=== PATIENT | female | born 2000 | race Caucasian/White ===

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

== ENCOUNTER 2021-12-25 15:02 | Emergency (ER) | payer OTHER ==
[2021-12-25 15:58] VITALS: BP 159/70; PULSE 87; RESP 18; TEMP 97.6
--- NOTE | 2021-12-25 18:17 | ED ---
Psych HPI - General Chief Complaint: Psychiatric Symptoms Stated Complaint: Mental Health Time Seen by Provider: 12/25/21 17:26 Source: patient Mode of arrival: ambulatory - History of Present Illness Initial Comments: Patient is a 21-year-old female presenting with chief complaint of suicidal ideation. Patient states that for the last 2 weeks she has had increasing thoughts of self-harm that have been excessively graphic. Patient states that she has had intermittent thoughts of self-harm over the last few years, but over the last 2 weeks the thoughts have gotten worse. She was seen at her PCPs office today to discuss medication changes, when asked about suicidal ideation patient admitted to this issue and her PCP suggested she see further evaluation in the ER. Patient states that she recently moved and started a new job, however these events have not put excessive stress on her and she is unsure why she is having this acute change. She is currently on Celexa. She denies any chest pain, shortness of breath, fever, chills, nausea, vomiting, cough, abdominal pain, diarrhea, hematochezia, melena, dysuria, hematuria, urgency, frequency, extremity pain or paresthesia. - Related Data Home Medications Medication Instructions Recorded Confirmed Citalopram Hydrobromide [CeleXA] 40 mg PO HS 11/29/20 11/29/20 Ibuprofen [Motrin Ib] 800 mg PO Q8H PRN 11/29/20 11/29/20 diphenhydrAMINE [Benadryl] 25 mg PO TID PRN 11/29/20 11/29/20 norgestimate-ethinyl estradioL 1 tab PO DAILY 11/29/20 11/29/20 [Tri-Sprintec Tablet] Allergies Allergy/AdvReac Type Severity Reaction Status Date / Time No Known Allergies Allergy Verified 12/25/21 15:59 Review of Systems ROS Statement: Those systems with pertinent positive or pertinent negative responses have been documented in the HPI. ROS Other: All systems not noted in ROS Statement are negative. Past Medical History Past Medical History: CVA/TIA, Diabetes Mellitus Additional Past Medical History / Comment(s): history of a seizure in the past related to stroke. has been weaned off of medications. Factor 5 History of Any Multi-Drug Resistant Organisms: None Reported Past Surgical History: Adenoidectomy, Tonsillectomy Past Psychological History: ADD/ADHD, Anxiety Smoking Status: Never smoker Past Alcohol Use History: None Reported Past Drug Use History: Marijuana General Exam Limitations: no limitations General appearance: alert, in no apparent distress Head exam: Present: atraumatic, normocephalic, normal inspection Eye exam: Present: normal appearance, EOMI. Absent: scleral icterus Neck exam: Present: normal inspection Respiratory exam: Present: normal lung sounds bilaterally. Absent: respiratory distress, wheezes, rales, rhonchi, stridor Cardiovascular Exam: Present: regular rate, normal rhythm, normal heart sounds. Absent: systolic murmur, diastolic murmur, rubs, gallop, clicks GI/Abdominal exam: Present: soft. Absent: distended, tenderness, guarding, rebound, rigid Extremities exam: Present: normal inspection, full ROM Back exam: Present: normal inspection Neurological exam: Present: alert, oriented X3, CN II-XII intact Psychiatric exam: Present: normal affect, normal mood Skin exam: Present: warm, dry, intact, normal color. Absent: rash Course Vital Signs 12/25/21 15:55 Temperature 97.6 F Pulse Rate 87 Respiratory 18 Rate Blood Pressure 159/70 O2 Sat by Pulse 98 Oximetry Medical Decision Making - Medical Decision Making Patient is a 21-year-old female presenting with chief complaint of suicidal ideation. Patient has had suicidal ideation on and off for years. She states that recently thoughts have been getting more intense and graphic. She was sent here by her PCP. She has no physical complaints. Physical examination is unremarkable. Patient was evaluated by EPS, she was given follow-up with the mobile crisis unit tomorrow, resources, and a safety plan. They believe she is stable for discharge with outpatient follow-up at this time. Patient feels comfortable with this plan. Report back to ER if any new or worsening symptoms. Discussed return parameters answered all questions. Patient conveyed verbal understanding and agreed to the plan. My attending is Dr. Patrick. Disposition Clinical Impression: Acute anxiety, Depression Disposition: HOME SELF-CARE Condition: Good Instructions (If sedation given, give patient instructions): Depression (ED), Generalized Anxiety Disorder (ED) Additional Instructions: Follow-up with mobile crisis unit tomorrow and PCP in one to 2 days. Utilize resources provided by EPS. Report back to ER with any new or worsening symptoms. Is patient prescribed a controlled substance at d/c from ED?: No Referrals: Danyelle,Brooks, MD [Primary Care Provider] - 1-2 days Time of Disposition: 21:15
== END 2021-12-25 22:34 | disposition home or self-care (01) ==
LOC: EC 15:02
DX: F32.A Depression, unspecified (principal); F41.9 Anxiety disorder, unspecified; R45.851 Suicidal ideations; E11.9 Type 2 diabetes mellitus without complications; Z86.73 Personal history of transient ischemic attack (TIA), and cerebral infarction without residual deficits
CPT/HCPCS: 82075

== ENCOUNTER 2022-05-05 10:12 | Inpatient (IN) | payer MEDICAID, OTHER ==
[2022-05-05] MEDS ORDERED: HALOPERIDOL LACTATE 5 MG/ML 1 ML VIAL IM PRN (14:37)
[2022-05-05] MEDS ORDERED: MAGNESIUM HYDROXIDE 2,400 MG/10 ML CUP PO PRN (14:37)
[2022-05-05] MEDS ORDERED: MAG HYDROX/AL HYDROX/SIMETH 30 ML CUP PO PRN (14:37)
[2022-05-05] MEDS ORDERED: LORazepam 1 MG TAB PO PRN (14:37)
[2022-05-05] MEDS ORDERED: IBUPROFEN 800 MG TAB PO PRN (14:40)
[2022-05-05] MEDS ORDERED: LORazepam 1 MG/0.5 ML VIAL IM PRN (14:41)
[2022-05-05] MEDS ORDERED: haloperidoL 5 MG TAB PO PRN (14:41)
[2022-05-05 17:10] LABS: ALT 22 U/L (4-34); AST 20 U/L (14-36); African American GFR (CKD) >90 (>60 ml/min/1.73 sqM); Albumin 3.9 g/dL (3.5-5.0); Alcohol <10 mg/dL; Alkaline Phosphatase 53 U/L (38-126); Anion Gap 11 mmol/L; Blood Urea Nitrogen 16 mg/dL (7-17); Calcium 8.9 mg/dL (8.4-10.2); Carbon Dioxide 21 mmol/L (22-30); Chloride 105 mmol/L (98-107); Creatine Kinase 55 U/L (30-135); Creatine Kinase MB 0.5 ng/mL (0.0-2.4); Glucose 112 mg/dL (74-99); Non-African American GFR(CKD) >90 (>60 ml/min/1.73 sqM); Phosphorus 4.3 mg/dL (2.5-4.5); Potassium 3.7 mmol/L (3.5-5.1); Salicylate <1.0 mg/dL; Sodium 137 mmol/L (137-145); Total Bilirubin 0.2 mg/dL (0.2-1.3); Total Protein 6.3 g/dL (6.3-8.2); Troponin I <0.012 ng/mL (0.000-0.034)
[2022-05-05 17:15] LABS: Basophils # (A) 0.1 k/uL (0-0.2); Basophils % (A) 1 %; Eosinophils # (A) 0.1 k/uL (0-0.7); Eosinophils % (A) 1 %; HCT 37.1 % (34.0-46.0); HGB 12.9 gm/dL (11.4-16.0); Lymphocytes % (A) 26 %; MCHC 34.8 g/dL (31.0-37.0); MCV 86.1 fL (80.0-100.0); Mean Platelet Volume 7.1; Monocytes # (A) 0.7 k/uL (0-1.0); Monocytes % (A) 6 %; Neutrophils # (A) 7.5 k/uL (1.3-7.7); Neutrophils % (A) 65 %; Platelet Count 308 k/uL (150-450); RBC 4.31 m/uL (3.80-5.40); RDW 13.1 % (11.5-15.5); WBC 11.6 k/uL (4.0-11.0)
[2022-05-05 17:26] LABS: Magnesium 2.1 mg/dL (1.6-2.3)
[2022-05-05 18:33] LABS: Amphetamine Screen,Urine Not Detected (NotDetected); Barbiturate Screen,Urine Not Detected (NotDetected); Benzodiazepines Screen,Urine Detected (NotDetected); Cocaine Screen,Urine Not Detected (NotDetected); Methadone Screen, Urine Not Detected (NotDetected); Opiate Screen,Urine Not Detected (NotDetected); Oxycodone Screen, Urine Not Detected (NotDetected); Phencyclidine Screen,Urine Not Detected (NotDetected); Tricyclic Antidepressant,Urine Not Detected (NotDetected); Urn Cannabinoid Scrn Detected (NotDetected)
[2022-05-05] MEDS: CITALOPRAM HYDROBROMIDE 20 MG TAB PO SCH (20:44)
[2022-05-06] MEDS ORDERED: NORGESTIMATE ETHINYL ESTRADIOL PO SCH (09:00)
[2022-05-06] MEDS: NICOTINE 14MG/24HR PATCH TRANSDERM SCH (11:06)
--- NOTE | 2022-05-06 15:50 | P.MDCNMH ---
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 Patient otherwise denied any complaints of chest pain or shortness of breath. No headache or dizziness or tiredness. No fever no chills. No nausea vomiting abdominal pain and diarrhea. Patient does use marijuana at home. Denied any nicotine use. Denied any recent illnesses. Laboratory data showed WBC 11.6 hemoglobin 12.9 and platelets 308, sodium 137 po tassium 3.7 chloride 105 bicarb is 21 BUN 16 and creatinine 0.6 and blood sugar is 112, troponin 1 negative UDS is positive for benzodiazepines and marijuana. Serum acetaminophen level 65 on admission and came down to 48.3. Review of Systems Constitutional: Patient denies any fever or chills . No generalized weakness or weight loss. Abdomen: Patient denied nausea vomiting and diarrhea and abdominal pain. Cardiovascular: Patient denies any chest pain or short of breath no palpitations. Respiratory: patient denied any cough is from production. No shortness of breath Neurologic: Patient denied any numbness or tingling headache. Musculoskeletal: Patient denies any complaints of joint swelling or deformity. Skin: Negative Psychiatric: Negative Endocrine: No heat or cold intolerance. No recent weight gain. Genitourinary: No dysuria or hematuria. All other 14 point ROS negative except the above Past Medical History Past Medical History: CVA/TIA, Diabetes Mellitus Additional Past Medical History / Comment(s): history of a seizure in the past related to stroke. has been weaned off of medications. Factor 5 History of Any Multi-Drug Resistant Organisms: None Reported Past Surgical History: Adenoidectomy, Tonsillectomy Past Psychological History: ADD/ADHD, Anxiety Smoking Status: Never smoker Past Alcohol Use History: None Reported Past Drug Use History: Marijuana Medications and Allergies Home Medications Medication Instructions Recorded Confirmed Type Citalopram Hydrobromide [CeleXA] 40 mg PO DAILY 11/29/20 05/05/22 History Allergies Allergy/AdvReac Type Severity Reaction Status Date / Time No Known Allergies Allergy Verified 05/05/22 13:02 Physical Exam Vitals: Vital Signs Temp Pulse Pulse Resp BP BP Pulse Ox 05/05/22 15:15 98.3 F 67 15 119/80 05/05/22 14:50 97.8 F 87 20 132/68 98 Intake and Output 05/05/22 05/06/22 05/06/22 23:59 06:59 14:59 Other: Weight 110.8 kg PHYSICAL EXAMINATION: Patient is lying in the bed comfortably, no acute distress, awake alert and oriented.. HEENT: Normocephalic. Neck is supple. Pupils reactive. Nostrils clear. Oral cavity is moist. Neck reveals no JVD, carotid bruits, or thyromegaly. CHEST EXAMINATION: Trachea is central. Symmetrical expansion. Lung finney clear to auscultation and percussion. CARDIAC: Normal S1, S2 with no gallops. No murmurs ABDOMEN: Soft. Bowel sounds normal. No organomegaly. No abdominal bruits. Extremities: reveal no edema. No clubbing or cyanosis Neurologically awake, alert, oriented x3 with well-coordinated movements. No focal deficits noted Skin: No rash or skin lesions. Psychiatric: Coperative. Nonsuicidal Musculoskeletal: No joint swelling or deformity. Normal range of motion. Cranial Nerve Examination - Cranial Nerves Cranial Nerve I- Olfactory: Intact Cranial Nerve II- Optic: Intact Cranial Nerve III- Oculomotor: Intact Cranial Nerve IV- Trochlear: Intact Cranial Nerve V- Trigeminal: Intact Cranial Nerve - Abducens: Intact Cranial Nerve VII- Facial: Intact Cranial Nerve VIII- Auditory: Intact Cranial Nerve IX- Glossopharyngeal: Intact Cranial Nerve X- Vagus: Intact Cranial Nerve XI- Accessory: Intact Cranial Nerve XII- Hypoglossal: Intact Results CBC & Chem 7: 05/05/22 04:11 05/05/22 04:11 Labs: Abnormal Lab Results - Last 24 Hours (Table) 05/05/22 05/05/22 05/05/22 Range/Units 04:11 04:11 08:00 WBC 11.6 H (4.0-11.0) k/uL Carbon Dioxide 21 L (22-30) mmol/L Glucose 112 H (74-99) mg/dL Acetaminophen 65.0 H* ug/mL U Benzodiazepines Scrn Detected H (NotDetected) U Marijuana (THC) Screen Detected H (NotDetected) Assessment and Plan Assessment: Suicide attempt with medication overdose. Major Depression History of CVA/TIA History of seizures due to CVA. Not on any AEDs Morbid obesity BMI 40.6 Diet controlled diabetes next and UDS positive for marijuana) DVT prophylaxis the examination Plan: Patient will be continued on current psychiatric plan and management. Acetaminophen level 65 on admission and is turning down to 48. UDS is positive for marijuana and benzodiazepines. Continue with Accu-Cheks and follow closely. Further recommendations based on the clinical course. thank you for your consult. Time with Patient: Greater than 30
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
[2022-05-06 17:33] LABS: LDL Cholesterol,Calculated 50.1 mg/dL (0.0-131.0)
[2022-05-06] MEDS: ARIPiprazole 2 MG TAB PO SCH (18:24)
[2022-05-06] MEDS: CITALOPRAM HYDROBROMIDE 20 MG TAB PO SCH (20:49)
[2022-05-07 06:40] VITALS: RESP 14
[2022-05-07] MEDS: NICOTINE 14MG/24HR PATCH TRANSDERM SCH (08:43)
[2022-05-07] MEDS: ARIPiprazole 2 MG TAB PO SCH (08:45)
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
[2022-05-07] MEDS: CITALOPRAM HYDROBROMIDE 20 MG TAB PO SCH (20:55)
[2022-05-08 07:11] VITALS: BP 125/51; PULSE 70; TEMP 97.7
[2022-05-08] MEDS: NICOTINE 14MG/24HR PATCH TRANSDERM SCH (08:29)
[2022-05-08] MEDS: ARIPiprazole 2 MG TAB PO SCH (08:30)
--- NOTE | 2022-05-08 12:46 | P.DS ---
Providers Date of admission: 05/05/22 14:30 Attending physician: Bradford Gomez MD Consults: 05/05/22 18:02 Consult Physician [facility]ine [facility] Reason/Comments: medical management Do you want consulting provider notified?: Yes Primary care physician: Brooks Bassett - Discharge Diagnosis(es) (1) Depressive disorder Current Visit: Yes Status: Acute Priority: High (2) Personality disorder, unspecified Current Visit: Yes Status: Acute Priority: Medium Plan - Discharge Summary New Discharge Prescriptions: New Mag Hydrox/Al Hydrox/Simeth [Maalox] 30 ml PO Q4HR PRN ml PRN Reason: Gi Upset ARIPiprazole [Abilify] 2 mg PO DAILY 30 Days #30 tab Citalopram Hydrobromide [CeleXA] 40 mg PO HS 30 Days #30 tab Ibuprofen [Motrin] 800 mg PO Q8H PRN tab PRN Reason: Pain Discontinued Citalopram Hydrobromide [CeleXA] 40 mg PO DAILY Discharge Medication List ARIPiprazole [Abilify] 2 mg PO DAILY 30 Days #30 tab 05/08/22 [Rx] Citalopram Hydrobromide [CeleXA] 40 mg PO HS 30 Days #30 tab 05/08/22 [Rx] Ibuprofen [Motrin] 800 mg PO Q8H PRN tab 05/08/22 [Rx] Mag Hydrox/Al Hydrox/Simeth [Maalox] 30 ml PO Q4HR PRN ml 05/08/22 [Rx] Follow up Appointment(s)/Referral(s): [facility] [Outside] - 05/09/22 1:00 pm (with Kalen See [phone]) Brooks Bassett MD [Primary Care Provider] - 1 Week Patient Instructions/Handouts: Citalopram (By mouth), Depression (DC), Anxiety (GEN) Activity/Diet/Wound Care/Special Instructions: Avoid the use of street drugs and alcohol. Take all prescriptions as prescribed. When you are in need of refills on your medications, please contact your medical provider and/or outpatient psychiatrist to have this done. Please go to scheduled outpatient appointment for aftercare treatment. If symptoms return or become worse, call the crisis line at and/or go to the nearest emergency room for evaluation.
--- NOTE | 2022-05-09 14:51 | P.DS ---
Providers Date of admission: 05/05/22 14:30 Expected date of discharge: 05/08/22 Attending physician: Bradford Gomze MD Consults: 05/05/22 18:02 Consult Physician Routine Consulting Provider: [facility] Consult Reason/Comments: medical management Do you want consulting provider notified?: Yes Primary care physician: Brooks Bassett - Discharge Diagnosis(es) (1) Depressive disorder Status: Acute Priority: High (2) Personality disorder, unspecified Status: Acute Priority: Medium Hospital Course: Patient had her psychiatric H&P done by and general medical H&P done by on 05/06/2022. After her psych H&P she was started on Celexa 40 mg a day for anxiety and depression. She took Celexa without any adverse effects. She participated in group and individual and other unit therapies. She did not have any behavioral issues while in the hospital. The very next day of taking Celexa she said she was feeling already better and was ready to go home. Celexa does not improve with condition of depression or anxiety within 1 day and it was a placebo effect and her basic problem was coping skills from personality disorder in view of this it was agreed to discharge her on 05/08/2022. At the time of discharge she was polite cooperative and did not show any psychomotor agitation or retardation. She continued to deny suicide and homicide thoughts hallucinations and delusional thinking. She agreed to seek outpatient treatment upon discharge. Patient Condition at Discharge: Good Plan - Discharge Summary New Discharge Prescriptions: New Mag Hydrox/Al Hydrox/Simeth [Maalox] 30 ml PO Q4HR PRN ml PRN Reason: Gi Upset ARIPiprazole [Abilify] 2 mg PO DAILY 30 Days #30 tab Citalopram Hydrobromide [CeleXA] 40 mg PO HS 30 Days #30 tab Ibuprofen [Motrin] 800 mg PO Q8H PRN tab PRN Reason: Pain Discontinued Citalopram Hydrobromide [CeleXA] 40 mg PO DAILY Discharge Medication List ARIPiprazole [Abilify] 2 mg PO DAILY 30 Days #30 tab 05/08/22 [Rx] Citalopram Hydrobromide [CeleXA] 40 mg PO HS 30 Days #30 tab 05/08/22 [Rx] Ibuprofen [Motrin] 800 mg PO Q8H PRN tab 05/08/22 [Rx] Mag Hydrox/Al Hydrox/Simeth [Maalox] 30 ml PO Q4HR PRN ml 05/08/22 [Rx] Follow up Appointment(s)/Referral(s): [facility] [Outside] - 05/09/22 1:00 pm (with Kalen See [phone]) Brooks Bassett MD [Primary Care Provider] - 1 Week Patient Instructions/Handouts: Citalopram (By mouth), Depression (DC), Anxiety (GEN) Activity/Diet/Wound Care/Special Instructions: Avoid the use of street drugs and alcohol. Take all prescriptions as prescribed. When you are in need of refills on your medications, please contact your medical provider and/or outpatient psychiatrist to have this done. Please go to scheduled outpatient appointment for aftercare treatment. If symptoms return or become worse, call the crisis line at and/or go to the nearest emergency room for evaluation. Discharge Disposition: HOME SELF-CARE
== END 2022-05-08 13:27 | disposition home or self-care (01) | DRG 918 ==
LOC: EC 10:12 → 3MHU 14:30
PROVIDERS: ADMIT Psychiatry & Neurology Psychiatry; ATTEND Psychiatry & Neurology Psychiatry
DX: T39.1X2A Poisoning by 4-Aminophenol derivatives, intentional self-harm, initial encounter (principal); R45.851 Suicidal ideations; F33.1 Major depressive disorder, recurrent, moderate; Z68.41 Body mass index [BMI] 40.0-44.9, adult; E66.9 Obesity, unspecified; E11.9 Type 2 diabetes mellitus without complications; F50.81 Binge eating disorder; F60.9 Personality disorder, unspecified; F41.0 Panic disorder [episodic paroxysmal anxiety]; F41.1 Generalized anxiety disorder; F43.10 Post-traumatic stress disorder, unspecified; F90.9 Attention-deficit hyperactivity disorder, unspecified type; Z62.811 Personal history of psychological abuse in childhood; Z62.820 Parent-biological child conflict; Z20.822 Contact with and (suspected) exposure to COVID-19; Z62.810 Personal history of physical and sexual abuse in childhood; Y07.12 Biological mother, perpetrator of maltreatment and neglect; Z86.73 Personal history of transient ischemic attack (TIA), and cerebral infarction without residual deficits; Z81.8 Family history of other mental and behavioral disorders; Z79.899 Other long term (current) drug therapy; Z28.310 Unvaccinated for COVID-19; Z86.61 Personal history of infections of the central nervous system
CPT/HCPCS: 80053; 80061; 80143; 80179; 80306; 80320; 81025; 82550; 82553; 83036; 83735; 84100; 84484; 85025; 87635; 99285

== ENCOUNTER → 2022-05-05 | Emergency (ER) | payer OTHER | LOC: EC 03:30 | DX: T65.91XA Toxic effect of unspecified substance, accidental (unintentional), initial encounter (principal); F32.A Depression, unspecified; X83.8XXA Intentional self-harm by other specified means, initial encounter | CPT/HCPCS: 99284 ==